=== PATIENT | female | born 1985 | race Hispanic/Latino ===

== ENCOUNTER 2017-07-30 07:09 | Emergency (ER) | payer SELFPAY ==
[2017-07-30 07:41] LABS: Urine Blood 2+ (NEG); Urine Glucose NEGATIVE (NEG); Urine Protein 1+ (NEG)
[2017-07-30] MEDS ORDERED: NA CHLORIDE 0.9% 1,000 ML ONE (07:49)
[2017-07-30] MEDS ORDERED: KETOROLAC 30 MG/ML INJ ONE (07:49)
[2017-07-30 08:07] LABS: Absolute Lymphocytes (CBC) 1.5 K/uL (0.7-4.9); Absolute Monocytes 0.9 K/uL (0.1-1.3); Absolute Neutrophil 10.1 K/uL (1.8-8.0); Basophils % 0.6 % (0-1.3); Eosinophils % 1.1 % (0-4.4); Hematocrit 27.6 % (36.0-45.0); MCH 28.9 pg (27.0-35.0); MCV 86.7 fL (80-100); Monocytes % 7.2 % (3.3-12.3); RBC Red Blood Cell Count 3.18 M/uL (3.86-4.86)
[2017-07-30] MEDS ORDERED: predniSONE 20 MG TAB ONE (08:12)
[2017-07-30] MEDS ORDERED: FENTANYL CITR 100 MCG/2 ML ONE (08:12)
[2017-07-30 08:18] LABS: Urine Bacteria <20 /HPF (<20); Urine RBC 20-50 /HPF (NONE SEEN)
[2017-07-30 08:19] LABS: Urine Culture Reflex Order REFLEXED
[2017-07-30 08:25] LABS: Bicarbonate 26 mEq/L (21-31); Glucose Level 119 mg/dL (65-120); Lipase 23 U/L (22-51); Potassium 3.3 mEq/L (3.6-5.0); Sodium Level 134 mEq/L (135-145)
[2017-07-30 08:31] LABS: ALT/SGPT 45 IU/L (10-60); AST/SGOT 47 IU/L (10-42); Albumin 4.2 g/dL (3.2-5.5); Alkaline Phosphatase 86 IU/L (42-121); Amylase Level 21 U/L (28-100); BUN Blood Urea Nitrogen 6 mg/dL (6-20); Bilirubin Direct 0.1 mg/dL (0-0.2); Bilirubin Total 0.4 mg/dL (0.3-1.2); Protein, Total 8.6 g/dL (6.0-8.3)
[2017-07-30 09:03] LABS: Thyroid Stimulating Hormone 59.91 uIU/mL (0.34-5.60)
--- NOTE | 2017-07-30 09:39 | RAD REPORT ---
EXAM DESCRIPTION: US - Transvaginal Study Probe - 07/30/2017 8:46 am CLINICAL HISTORY: Vaginal bleeding. COMPARISON: None. FINDINGS: The uterus is normal in size, shape and echotexture. Submucosal calcified lesion is seen m idbody measuring 6 x 5 x 4 mm, probably a small calcified fibroid. Subserosal fibroid is noted in the fundal region on the right measuring 16 x 15 mm. The uterus measures 8.0 x 5.2 x 3.3 cm. The endometrial stripe measures 4 mm, normal. Both ovaries are normal in size, shape and echotexture. The right ovary measures 1.9 x 1.5 cm. The left ovary measures 3.6 x 2.3 cm. No ovarian or parovarian lesions. No adnexal masses. Normal Doppler blood flow was demonstrated to both ovaries. IMPRESSION: Mildly leiomyomatous uterus as detailed.
[2017-07-30] MEDS ORDERED: SIMETHICONE 80 MG TAB PO ONE (10:30)
--- NOTE | 2017-07-30 10:53 | EDPHYS ---
Physician Documentation [facility] Name: Kusum Sheth Age: 32 yrs Sex: Female : 1985 Arrival Date: 07/30/2017 Time: 07:12 Bed 20 Private MD: None, None ED Physician Adolfo Lopez HPI: 07/30 08:02 This 32 yrs old Female presents to ER via Ambulatory with complaints of snw Abdominal Pain, Breathing Difficulty. 08:02 The patient presents with abdominal pain in the right upper quadrant, right lower snw quadrant. Onset: The symptoms/episode began/occurred suddenly, and became persistent. The symptoms do not radiate. Associated signs and symptoms: Pertinent positives: vaginal bleeding. The symptoms are described as shooting. Severity of pain: At its worst the pain was moderate severe. The patient has not experienced similar symptoms in the past. The patient has not recently seen a physician. 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 - Social history:: Smoking status: Patient uses tobacco products, denies chronic smoking, but will smoke occasionally. - Ebola Screening: : No symptoms or risks identified at this time. ROS: 08:01 Constitutional: Negative for fever, chills, and weight loss, Eyes: Negative for injury, snw pain, redness, and discharge, ENT: Negative for injury, pain, and discharge, Neck: Negative for injury, pain, and swelling, Cardiovascular: Negative for chest pain, palpitations, and edema, Respiratory: Negative for shortness of breath, cough, wheezing, and pleuritic chest pain, Back: Negative for injury and pain, MS/Extremity: Negative for injury and deformity, Skin: Negative for injury, rash, and discoloration, Neuro: Negative for headache, weakness, numbness, tingling, and seizure. 08:01 Abdomen/GI: Positive for abdominal pain. 08:01 : Positive for vaginal bleeding. Exam: 08:00 Constitutional: This is a well developed, well nourished patient who is awake, alert, snw and in no acute distress. 08:00 Eyes: Pupils equal round and reactive to light, extra-ocular motions intact. Lids and lashes normal. Conjunctiva and sclera are non-icteric and not injected. Cornea within normal limits. Periorbital areas with no swelling, redness, or edema. ENT: Nares patent. No nasal discharge, no septal abnormalities noted. Tympanic membranes are normal and external auditory canals are clear. Oropharynx with no redness, swelling, or masses, exudates, or evidence of obstruction, uvula midline. Mucous membranes moist. Neck: Trachea midline, no thyromegaly or masses palpated, and no cervical lymphadenopathy. Supple, full range of motion without nuchal rigidity, or vertebral point tenderness. No Meningismus. Chest/axilla: Normal chest wall appearance and motion. Nontender with no deformity. No lesions are appreciated. 08:00 Respiratory: Lungs have equal breath sounds bilaterally, clear to auscultation and percussion. No rales, rhonchi or wheezes noted. No increased work of breathing, no retractions or nasal flaring. Back: No spinal tenderness. No costovertebral tenderness. Full range of motion. Skin: Warm, dry with normal turgor. Normal color with no rashes, no lesions, and no evidence of cellulitis. MS/ Extremity: Pulses equal, no cyanosis. Neurovascular intact. Full, normal range of motion. Neuro: Awake and alert, GCS 15, oriented to person, place, time, and situation. Cranial nerves II-XII grossly intact. Motor strength 5/5 in all extremities. Sensory grossly intact. Cerebellar exam normal. Normal gait. 08:00 Head/face: Noted is pallor. 08:00 Cardiovascular: Rate: tachycardic, Rhythm: regular, Heart sounds: normal, JVD: is not appreciated. 08:00 Abdomen/GI: Inspection: abdomen appears normal, Bowel sounds: normal, Palpation: moderate abdominal tenderness, severe abdominal tenderness, in the right upper quadrant and right lower quadrant. Vital Signs: 07:18 BP 133 / 93; Pulse 116; Resp 22; Temp 97.7; Pulse Ox 99% on R/A; Weight 74.84 kg; ph Height 5 ft. 5 in. (165.10 cm); Pain 10/10; 07:40 BP 121 / 75; Pulse 105; Resp 20; Pulse Ox 97% on R/A; Pain 8/10; em 09:01 BP 116 / 76; Pulse 90; Resp 22; Pulse Ox 100% on R/A; Pain 8/10; em 10:00 BP 113 / 79; Pulse 89; Resp 18; Pulse Ox 98% on R/A; Pain 6/10; em 11:00 BP 111 / 69; Pulse 84; Resp 17; Pulse Ox 97% on R/A; em 07:18 Body Mass Index 27.46 (74.84 kg, 165.10 cm) ph MDM: 07:52 Patient medically screened. snw 10:49 Data reviewed: vital signs, nurses notes. Data interpreted: Pulse oximetry: on room air snw is 100 %. Interpretation: normal. Counseling: I had a detailed discussion with the patient and/or guardian regarding: the historical points, exam findings, and any diagnostic results supporting the discharge/admit diagnosis, lab results, radiology results, the need for outpatient follow up, for definitive care. Response to treatment: There is no appreciated change of the patient's symptoms at this time, pt had no pain relief with toradol, fentanyl given, denies relief, repeated. No change in condition. Will try simethicone. Pt to f/u Endocrine for hypothyroidism.. Special discussion: Based on the history and exam findings, there is no indication for further emergent testing or inpatient evaluation. Endocrinology. 07/30 07:32 Order name: Urine Dipstick--Ancillary (enter results) 07/30 07:32 Order name: Urine --Ancillary (enter results) bd 07/30 07:32 Order name: Urine Dipstick-Ancillary; Complete Time: 07:43 EDMS 07/30 07:32 Order name: Urine --Ancillary; Complete Time: 07:43 EDMS 07/30 07:44 Order name: Amylase, Serum; Complete Time: 09:49 snw 07/30 07:44 Order name: Basic Metabolic Panel; Complete Time: 09:49 snw 07/30 07:44 Order name: CBC with Diff; Complete Time: 08:20 snw 07/30 07:44 Order name: Creatinine for Radiology; Complete Time: 08:30 snw 07/30 07:44 Order name: Hepatic Function; Complete Time: 09:49 snw 07/30 07:44 Order name: Lipase; Complete Time: 09:49 snw 07/30 07:44 Order name: Urine Microscopic Only; Complete Time: 08:30 snw 07/30 07:44 Order name: TS; Complete Time: 08:52 snw 07/30 07:44 Order name: TSH; Complete Time: 09:49 snw 07/30 08:23 Order name: Urine Culture EDMS 07/30 07:44 Order name: Urine Test (obtain specimen); Complete Time: 07:59 snw 07/30 07:44 Order name: IV Saline Lock; Complete Time: 07:59 snw 07/30 07:44 Order name: Labs collected and sent; Complete Time: 07:59 snw 07/30 07:44 Order name: Urine Dipstick-Ancillary (obtain specimen); Complete Time: 07:59 snw 07/30 07:45 Order name: US Transvaginal Study (Probe); Complete Time: 09:49 snw 07/30 09:04 Order name: T4 Free; Complete Time: 09:49 EDMS Administered Medications: 07:57 Drug: TORadol 30 mg Route: IVP; Site: right antecubital; iw 08:08 Follow up: Response: No adverse reaction; Pain is unchanged, physician notified em 07:59 Drug: NS 0.9% 1000 ml Route: IV; Rate: 125 ml/hr; Site: right antecubital; em 11:40 Follow up: IV Status: Order to discontinue infusion; IV Intake: 400ml em 08:15 Drug: fentaNYL (PF) 25 mcg Route: IVP; Site: right antecubital; iw 09:13 Follow up: Response: No adverse reaction em 09:45 Drug: fentaNYL (PF) 25 mcg Route: IVP; Site: right antecubital; em 10:08 Follow up: Response: No adverse reaction em 10:54 Drug: Simethicone 120 mg Route: PO; em 11:39 Follow up: Response: No adverse reaction em Disposition: 18:40 Co-signature as Attending Physician, Adolfo Lopez MD I agree with the assessment and kdr plan of care. Disposition: 07/30/17 10:53 Discharged to Home. Impression: Hypothyroidism, unspecified, Leiomyoma of uterus, unspecified, Anemia, unspecified. - Condition is Stable. - Discharge Instructions: Anemia, Nonspecific, Uterine Bleeding, Dysfunctional, Abdominal Pain, Women, Transvaginal Ultrasound. - Prescriptions for Synthroid 100 mcg Oral tablet - take 1 tablet by ORAL route once daily; 30 tablet. Bentyl 20 mg Oral Tablet - take 1 tablet by ORAL route every 6 hours As needed; 20 tablet. Miralax 17 gram/dose Oral - take 1 packet by ORAL route once daily dilute powder in 8 ounces of water or juice; 1 box. - Medication Reconciliation Form, Thank You Letter, Antibiotic Education, Prescription Opioid Use, Work release form form. - Follow up: Private Physician; When: 2 - 3 days; Reason: Recheck today's complaints, Continuance of care, Re-evaluation by your physician. Follow up: Emergency Department; When: As needed; Reason: Worsening of condition. Signatures: Dispatcher [employer] EDMS Adolfo Lopez MD MD kdr Therrien, Shelly, NEWS WIRE PHOTO OPERATOR-C NEWS WIRE PHOTO OPERATOR-Csnw Terry Meyers, DEVELOPMENT MECHANIC DEVELOPMENT MECHANIC em Diana Vyas, NICOLASA RN iw Dinora Ceballos RN RN ph Corrections: (The following items were deleted from the chart) 11:40 10:53 07/30/2017 10:53 Discharged to Home. Impression: Hypothyroidism, unspecified; em Leiomyoma of uterus, unspecified; Anemia, unspecified. Condition is Stable. Forms are Medication Reconciliation Form, Thank You Letter, Antibiotic Education, Prescription Opioid Use. Follow up: Private Physician; When: 2 - 3 days; Reason: Recheck today's complaints, Continuance of care, Re-evaluation by your physician. Follow up: Emergency Department; When: As needed; Reason: Worsening of condition. snw
--- NOTE | 2017-07-30 10:53 | ER ---
Nurse's Notes [facility] Name: Kusum Sheth Age: 32 yrs Sex: Female : 1985 Arrival Date: 07/30/2017 Time: 07:12 Bed 20 Private MD: None, None Diagnosis: Hypothyroidism, unspecified;Leiomyoma of uterus, unspecified;Anemia, unspecified Presentation: 07/30 07:15 Presenting complaint: Patient states: Reports L sided abdominal pain, heavy and ph irregular period, also c/o pain w/ respiration, Spo2 99% RA in triage, denies fever. N/V/D. Transition of care: patient was not received from another setting of care. Onset of symptoms was July 30, 2017. Risk Assessment: Do you want to hurt yourself or someone else? Patient reports no desire to harm self or others. Initial Sepsis Screen: Does the patient meet any 2 criteria? No. Patient's initial sepsis screen is negative. Does the patient have a suspected source of infection? No. Patient's initial sepsis screen is negative. Care prior to arrival: None. 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 - Social history:: Smoking status: Patient uses tobacco products, denies chronic smoking, but will smoke occasionally. - Ebola Screening: : No symptoms or risks identified at this time. Screenin:03 Abuse screen: Denies threats or abuse. Nutritional screening: No deficits noted. em Tuberculosis screening: No symptoms or risk factors identified. Fall Risk None identified. Assessment: 07:35 General: Appears uncomfortable, Behavior is calm, cooperative, Reports heavy period em since July 17, pain started yesterday in RUQ and LLQ. Pain: Complains of pain in right upper quadrant and right lower quadrant Pain does not radiate. Pain currently is 8 out of 10 on a pain scale. Pain began 1 day ago. Neuro: Level of Consciousness is awake, alert, obeys commands, Oriented to person, place, time, situation. Cardiovascular: Capillary refill < 3 seconds Patient's skin is warm and dry. Respiratory: Reports shortness of breath at rest Airway is patent Respiratory effort is even, unlabored, Respiratory pattern is regular, symmetrical, Breath sounds are clear bilaterally. GI: Abdomen is round non-distended, Bowel sounds present X 4 quads. Abd is soft X 4 quads Abdomen is tender to palpation in right upper quadrant and right lower quadrant Patient currently denies nausea, vomiting. : Reports vaginal bleeding that is heavy flow since July 17. Derm: Skin is intact, Skin is dry, Skin is pale. Musculoskeletal: Range of motion: intact in all extremities. 07:50 Reassessment: Patient appears in no apparent distress at this time. I agree with above iw assessment by Terry Meyers LVN. 08:10 Reassessment: Patient appears in no apparent distress at this time. Patient and/or em family updated on plan of care and expected duration. Pain level reassessed. reports medication didn't help, Dea, CYBER SECURITY INSTRUCTOR notified, new medication orders received. 09:02 Reassessment: Patient appears in no apparent distress at this time. Patient and/or em family updated on plan of care and expected duration. Pain level reassessed. Patient is alert, oriented x 3, equal unlabored respirations, skin warm/dry/pink. pt c/o RUQ pain, "hurts to take a deep breath.", RR 20 even and unlabored, 99% SPO2 RA, Dea, CYBER SECURITY INSTRUCTOR notified. 10:01 Reassessment: Patient appears in no apparent distress at this time. Patient and/or em family updated on plan of care and expected duration. Pain level reassessed. Patient is alert, oriented x 3, equal unlabored respirations, skin warm/dry/pink. 11:00 Reassessment: Patient appears in no apparent distress at this time. Patient and/or em family updated on plan of care and expected duration. Pain level reassessed. Patient is alert, oriented x 3, equal unlabored respirations, skin warm/dry/pink. Patient states feeling better. Vital Signs: 07:18 BP 133 / 93; Pulse 116; Resp 22; Temp 97.7; Pulse Ox 99% on R/A; Weight 74.84 kg; ph Height 5 ft. 5 in. (165.10 cm); Pain 10; 07:40 BP 121 / 75; Pulse 105; Resp 20; Pulse Ox 97% on R/A; Pain 8/10; em 09:01 BP 116 / 76; Pulse 90; Resp 22; Pulse Ox 100% on R/A; Pain 8/10; em 10:00 BP 113 / 79; Pulse 89; Resp 18; Pulse Ox 98% on R/A; Pain 6/10; em 11:00 BP 111 / 69; Pulse 84; Resp 17; Pulse Ox 97% on R/A; em 07:18 Body Mass Index 27.46 (74.84 kg, 165.10 cm) ph ED Course: 07:12 Patient arrived in ED. mr 07:12 None, None is Private Physician. mr 07:17 Triage completed. ph 07:19 Arm band placed on. ph 07:43 Dea Lawrence FNP-C [facility]. snw 07:43 Adolfo Lopez MD is Attending Physician. snw 07:45 Initial lab(s) drawn, by ga, sent to lab. Inserted saline lock: 20 gauge in right em antecubital area, using aseptic technique. Blood collected. 07:46 Terry Meyers LVN is Primary Nurse. em 08:03 Patient has correct armband on for positive identification. Placed in gown. Bed in low em position. Call light in reach. Pulse ox on. NIBP on. Warm blanket given. 08:15 Patient taken to ultrasound. aa4 08:39 US Transvaginal Study (Probe) In Process Unspecified. EDMS 10:11 Ultrasound completed. Patient tolerated well. Patient moved back from ultrasound. lc3 11:37 No provider procedures requiring assistance completed. IV discontinued, intact, em bleeding controlled, No redness/swelling at site. Pressure dressing applied. Administered Medications: 07:57 Drug: TORadol 30 mg Route: IVP; Site: right antecubital; iw 08:08 Follow up: Response: No adverse reaction; Pain is unchanged, physician notified em 07:59 Drug: NS 0.9% 1000 ml Route: IV; Rate: 125 ml/hr; Site: right antecubital; em 11:40 Follow up: IV Status: Order to discontinue infusion; IV Intake: 400ml em 08:15 Drug: fentaNYL (PF) 25 mcg Route: IVP; Site: right antecubital; iw 09:13 Follow up: Response: No adverse reaction em 09:45 Drug: fentaNYL (PF) 25 mcg Route: IVP; Site: right antecubital; em 10:08 Follow up: Response: No adverse reaction em 10:54 Drug: Simethicone 120 mg Route: PO; em 11:39 Follow up: Response: No adverse reaction em Intake: 11:40 IV: 400ml; Total: 400ml. em Outcome: 10:53 Discharge ordered by . chuy 11:38 Discharged to home ambulatory. em 11:38 Condition: good 11:38 Discharge instructions given to patient, Instructed on discharge instructions, follow up and referral plans. medication usage, Demonstrated understanding of instructions, follow-up care, medications. 11:40 Patient left the ED. em Addendum: 08/02/2017 07:44 Addendum: Culture Results: Positive urine culture. Patient was not prescribed s s antibiotics at discharge. Report given to SARA for further evaluation and then to assembler corncob pipes for follow up with patient. 08/04/2017 09:53 Addendum: Culture Results: Phone call Attempt #1 pt did not answer, left voice mail i w with call back number. Signatures: Dispatcher [employer] EDMS Dea Lawrence, BATTER DEPOSITOR-C BATTER DEPOSITOR-Csnw Megan Vanegas mr Meyers, Terry, TRAINING AND DEVELOPMENT ASSISTANT TRAINING AND DEVELOPMENT ASSISTANT em Diana Vyas, Kusum Locke RN, Shelby, RN RN ss Hall, Patricia, RN RN ph Cunningham, Laulita lc3
[2017-07-30 11:53] VITALS: TEMP 97.7
[2017-07-30 11:58] VITALS: BP 111/69; O2SAT 97
== END 2017-07-30 11:40 | disposition home or self-care (01) ==
LOC: ER 07:09
DX: D25.9 Leiomyoma of uterus, unspecified (principal); E03.9 Hypothyroidism, unspecified; D64.9 Anemia, unspecified; Z72.0 Tobacco use
CPT/HCPCS: 36415; 76830; 80048; 80076; 81003; 81015; 81025; 82150; 83690; 84439; 84443; 85025; 86850; 86900; 86901; 87077; 87086; 87088; 87186; 96361; 96374; 96375; 99284; J3010; J7030; J7512

== ENCOUNTER 2018-06-14 08:26 | Emergency (ER) | payer SELFPAY ==
[2018-06-14] MEDS ORDERED: CLINDAMYCIN HCL 150 MG CAP ONE (09:15)
[2018-06-14] MEDS ORDERED: KETOROLAC 30 MG/ML INJ ONE (09:15)
--- NOTE | 2018-06-14 09:42 | EDPHYS ---
Physician Documentation [facility] Name: Kusum Sheth Age: 33 yrs Sex: Female : 1985 Arrival Date: 06/14/2018 Time: 08:28 Bed 19 Private MD: ED Physician Henry Cruz HPI: 06/14 09:40 This 33 yrs old Female presents to ER via Ambulatory with complaints of kb Toothache. 09:40 The patient presents with pain, redness, swelling. The problem is located in the lower kb right first molar (#30). Onset: The symptoms/episode began/occurred 2 day(s) ago. Duration: The symptoms are continuous. Modifying factors: The symptoms are alleviated by nothing, the symptoms are aggravated by chewing. Associated signs and symptoms: Pertinent positives: pain, redness in area, swelling. Severity of symptoms: At their worst the symptoms were moderate, in the emergency department the symptoms are unchanged. The patient has not experienced similar symptoms in the past. The patient has not recently seen a physician. 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 - Social history:: Smoking status: Patient uses tobacco products, denies chronic smoking, but will smoke occasionally. - Ebola Screening: : No symptoms or risks identified at this time. ROS: 09:36 Constitutional: Negative for fever, chills, and weight loss, Cardiovascular: Negative kb for chest pain, palpitations, and edema, Respiratory: Negative for shortness of breath, cough, wheezing, and pleuritic chest pain, Abdomen/GI: Negative for abdominal pain, nausea, vomiting, diarrhea, and constipation, MS/Extremity: Negative for injury and deformity, Skin: Negative for injury, rash, and discoloration, Neuro: Negative for headache, weakness, numbness, tingling, and seizure. 09:36 ENT: Positive for dental pain. Exam: 09:36 Constitutional: This is a well developed, well nourished patient who is awake, alert, kb and in no acute distress. Head/Face: Normocephalic, atraumatic. Chest/axilla: Normal chest wall appearance and motion. Nontender with no deformity. No lesions are appreciated. Cardiovascular: Regular rate and rhythm with a normal S1 and S2. No gallops, murmurs, or rubs. Normal PMI, no JVD. No pulse deficits. Respiratory: Lungs have equal breath sounds bilaterally, clear to auscultation and percussion. No rales, rhonchi or wheezes noted. No increased work of breathing, no retractions or nasal flaring. Abdomen/GI: Soft, non-tender, with normal bowel sounds. No distension or tympany. No guarding or rebound. No evidence of tenderness throughout. Skin: Warm, dry with normal turgor. Normal color with no rashes, no lesions, and no evidence of cellulitis. MS/ Extremity: Pulses equal, no cyanosis. Neurovascular intact. Full, normal range of motion. Neuro: Awake and alert, GCS 15, oriented to person, place, time, and situation. Cranial nerves II-XII grossly intact. Motor strength 5/5 in all extremities. Sensory grossly intact. Cerebellar exam normal. Normal gait. 09:36 ENT: Dental exam: abscess, that is moderate, specifically in the lower right first molar (#30), gum swelling, pain. Vital Signs: 08:39 BP 125 / 99; Pulse 85; Resp 16 S; Temp 98.5(TE); Pulse Ox 100% on R/A; Weight 74.84 kg aa5 (R); Height 5 ft. 5 in. (165.10 cm) (R); Pain 10/10; 08:39 Body Mass Index 27.46 (74.84 kg, 165.10 cm) aa5 MDM: 08:56 Patient medically screened. kb 09:35 Data reviewed: vital signs, nurses notes. Data interpreted: Pulse oximetry: on room air kb is 100 %. Interpretation: normal. 09:40 Counseling: I had a detailed discussion with the patient and/or guardian regarding: the kb historical points, exam findings, and any diagnostic results supporting the discharge/admit diagnosis, the need for outpatient follow up, a dentist. Administered Medications: 09:05 Drug: Clindamycin 300 mg Route: PO; bp 10:04 Follow up: Response: No adverse reaction bp 09:05 Drug: TORadol 60 mg Route: IM; Site: right gluteus; bp 10:03 Follow up: Response: Pain is decreased bp Disposition: 06/14/18 09:41 Discharged to Home. Impression: Periapical abscess without sinus. - Condition is Stable. - Discharge Instructions: Dental Pain, [id number], Dental Abscess, [id number]. - Prescriptions for Clindamycin HCl 300 mg Oral Capsule - take 1 capsule by ORAL route every 6 hours for 10 days; 40 capsule. Diclofenac Sodium 75 mg Oral Tablet, Delayed Release (E.C.) - take 1 tablet by ORAL route 2 times per day As needed; 30 tablet. - Medication Reconciliation Form, Thank You Letter, Antibiotic Education, Prescription Opioid Use form. - Follow up: Emergency Department; When: As needed; Reason: Worsening of condition. Follow up: Private Physician; When: 2 - 3 days; Reason: Recheck today's complaints, Continuance of care, Re-evaluation by your physician. Addendum: 06/15/2018 12:06 Co-signature as Attending Physician, Henry Cruz MD I agree with the assessment and c norris plan of care. Signatures: Valeria Behtea, DIRECTOR CHANNEL-C DIRECTOR CHANNEL-Ckb Henry Cruz MD MD cha Calderon, Audri, RN RN aa5 Eladio Lr, RN RN bp Corrections: (The following items were deleted from the chart) 06/14 10:05 09:41 06/14/2018 09:41 Discharged to Home. Impression: Periapical abscess without bp sinus. Condition is Stable. Forms are Medication Reconciliation Form, Thank You Letter, Antibiotic Education, Prescription Opioid Use. Follow up: Emergency Department; When: As needed; Reason: Worsening of condition. Follow up: Private Physician; When: 2 - 3 days; Reason: Recheck today's complaints, Continuance of care, Re-evaluation by your physician. kb
--- NOTE | 2018-06-14 09:42 | ER ---
Nurse's Notes [facility] Name: Kusum Sheth Age: 33 yrs Sex: Female : 1985 Arrival Date: 06/14/2018 Time: 08:28 Bed 19 Private MD: Diagnosis: Periapical abscess without sinus Presentation: 06/14 08:38 Presenting complaint: Patient states: toothache x 2 days ago. Pt states "I have an aa5 abscess tooth and the pain got worse today". Transition of care: patient was not received from another setting of care. Onset of symptoms was May 2018. Risk Assessment: Do you want to hurt yourself or someone else? Patient reports no desire to harm self or others. Initial Sepsis Screen: Does the patient meet any 2 criteria? No. Patient's initial sepsis screen is negative. Does the patient have a suspected source of infection? No. Patient's initial sepsis screen is negative. Care prior to arrival: None. 08:38 Method Of Arrival: Ambulatory aa5 08:38 Acuity: RAINER 4 aa5 Triage Assessment: 08:42 General: Appears in no apparent distress. uncomfortable, Behavior is calm, cooperative, bp appropriate for age. Pain: Complains of pain in mouth. EENT: Reports pain in mouth. Neuro: Level of Consciousness is awake, alert, obeys commands, Oriented to person, place, time, situation, Appropriate for age. Cardiovascular: No deficits noted. Respiratory: Airway is patent Respiratory effort is even, unlabored, Respiratory pattern is regular, symmetrical. GI: No signs and/or symptoms were reported involving the gastrointestinal system. : No signs and/or symptoms were reported regarding the genitourinary system. Derm: No deficits noted. Musculoskeletal: Circulation, motion, and sensation intact. Range of motion: intact in all extremities. 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 - Social history:: Smoking status: Patient uses tobacco products, denies chronic smoking, but will smoke occasionally. - Ebola Screening: : No symptoms or risks identified at this time. Screenin:40 Abuse screen: Denies threats or abuse. Denies injuries from another. Nutritional bp screening: No deficits noted. Tuberculosis screening: No symptoms or risk factors identified. Fall Risk None identified. Assessment: 08:40 General: SEE TRIAGE NOTE. bp 10:02 Reassessment: PT D/C HOME AMBULATORY WITH FAMILY, DX WITH ANGELIKA-APICAL ABSCESS. bp Vital Signs: 08:39 BP 125 / 99; Pulse 85; Resp 16 S; Temp 98.5(TE); Pulse Ox 100% on R/A; Weight 74.84 kg aa5 (R); Height 5 ft. 5 in. (165.10 cm) (R); Pain 10/10; 08:39 Body Mass Index 27.46 (74.84 kg, 165.10 cm) aa5 ED Course: 08:28 Patient arrived in ED. as 08:38 Triage completed. aa5 08:38 Arm band placed on. aa5 08:40 Patient has correct armband on for positive identification. Bed in low position. Call bp light in reach. Side rails up X2. 08:41 Eladio Lr, RN is Primary Nurse. bp 08:56 Valeria Bethea FNP-C is PHCP. kb 08:56 Henry Cruz MD is Attending Physician. kb 10:03 No provider procedures requiring assistance completed. Patient did not have IV access bp during this emergency room visit. Administered Medications: 09:05 Drug: Clindamycin 300 mg Route: PO; bp 10:04 Follow up: Response: No adverse reaction bp 09:05 Drug: TORadol 60 mg Route: IM; Site: right gluteus; bp 10:03 Follow up: Response: Pain is decreased bp Outcome: 09:41 Discharge ordered by . kb 10:04 Discharged to home ambulatory, with family. bp 10:04 Condition: stable 10:04 Discharge instructions given to patient, Instructed on discharge instructions, follow up and referral plans. medication usage, Demonstrated understanding of instructions, follow-up care, medications, Prescriptions given X 2. 10:05 Patient left the ED. bp Signatures: Valeria Bethea FNP-C FNP-Ckb Martinez, Amelia as Calderon, Audri RN RN aa5 Eladio Lr, NICOLASA RN bp
[2018-06-14 10:11] VITALS: BP 125/99; TEMP 98.5; O2SAT 100
== END 2018-06-14 10:05 | disposition home or self-care (01) ==
LOC: ER 08:26
DX: K04.7 Periapical abscess without sinus (principal); F41.9 Anxiety disorder, unspecified; E78.5 Hyperlipidemia, unspecified; E03.9 Hypothyroidism, unspecified; Z72.0 Tobacco use
CPT/HCPCS: 96372; 99283